=== PATIENT | male | born 1970 | race Caucasian/White ===

== ENCOUNTER 2020-01-14 08:56 | Emergency (ER) | payer OTHER, SELFPAY ==
--- NOTE | ~2020-01-14 | XR_ITS ---
EXAMINATION: XR foot RT 2V DATE: 01/14/2020 10:02 INDICATION: Lateral right foot pain TECHNIQUE: Dorsoplantar and lateral views of the right foot were obtained. COMPARISON: None. FINDINGS: Alignment is normal. No fracture. 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 Sydnee ining joint spaces are normal. Soft tissues are unremarkable. No right ankle joint effusion. IMPRESSION: 1. 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 No other osseous abnormality. Reviewed, dictated and finalized at location A. IMPRESSION: 1. 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 No other osse ous abnormality.
[2020-01-14 09:20] VITALS: BP 168/80; PULSE 81; RESP 16; TEMP 37.2; O2SAT 97
--- NOTE | 2020-01-14 09:31 | ED.EXTPRO ---
HPI - Extremity Problem General Chief complaint: Extremity Problem,Nontraumatic Stated complaint: right foot pain Time Seen by Provider: 01/14/20 09:33 Source: patient and RN notes reviewed Mode of arrival: ambulatory Limitations: no limitations History of Present Illness HPI Narrative: 49-year-old male presents with concern for right dorsal foot pain. He denies injury or trauma to the foot. Reports a similar pain 6 months ago that lasted for 1 month and then resolved. Reports he works on his feet, walks a lot. Reports mild pain at rest, pain worsening with weightbearing. Reports pain is improved when he puts a supportive shoe on. Denies bruising, redness, swelling. Reports the second digit of his right foot feels tingly. Denies weakness. MD Complaint: extremity pain Related Data Home Medications Medication Instructions Recorded Confirmed atenolol-chlorthalidone 1 tablet PO DAILY 11/15/19 01/14/20 lisinopril 40 mg PO DAILY 11/15/19 01/14/20 Allergies Allergy/AdvReac Type Severity Reaction Status Date / Time No Known Allergies Allergy Verified 01/14/20 09:23 Review of Systems Review of Systems: Narrative: CONSTITUTIONAL: Denies malaise, chills, sweats, or fever. CARDIOVASCULAR: Denies edema. RESPIRATORY: Denies dyspnea. SKIN: Denies bruising, redness MUSCULOSKELETAL: Reports right dorsal foot pain that radiates to the pedal aspect NEUROLOGIC: Denies weakness. Reports numbness in the second digit of the right foot All systems reviewed & are unremarkable except as noted in HPI and below PMFSH Past Medical History Medical History (Updated 01/14/20 @ 10:13 by Alexsandra Bradley NP) GERD (gastroesophageal reflux disease) History of posttraumatic stress disorder (PTSD) Hypercholesterolemia Hypertension Surgical History Surgical History (Updated 11/15/19 @ 09:42 by Glenis Chou NP) History of tonsillectomy and adenoidectomy Social History Social History (Updated 11/15/19 @ 09:42 by Glenis Chou NP) Smoking packs per day: 1 Smoking cigarettes per day: 20.0 Years smoked: 20 Smoking pack-years: 20.00 Smoking status: Current every day smoker Gender identity (if verbalized by the patient): Male Comments At time of signature, agree with nursing past medical, surgical, social and family history. There is no relevant family history pertinent to the presenting complaint Exam Narrative: Exam Narrative: GENERAL: Well-appearing, well-nourished, and in no acute distress. HEAD: Normocephalic, atraumatic. EYES: PERRLA, conjunctivae clear NECK: Supple. CHEST: Speaks in full sentences. No respiratory distress. HEART: Regular rate and rhythm. Normal and equal peripheral pulses. EXTREMITIES: Right foot and digits of right foot have normal strength and sensation, no edema, normal range of motion. 5/5 strength with digit and ankle flexion and extension. Normal sensation with sensitivity to light touch and pain. No open wounds, no skin tenting, no devitalized tissue or atrophy, no trophic changes, no ecchymosis, no obvious deformity, alignment normal, generalized dorsal, lateral tenderness, nearby joints and structures intact. Distal pulses palpable and equal bilaterally, skin warm, dry, pink. Capillary refill less than 3 seconds. SKIN: Warm, dry, no rash. NEURO: Alert and oriented x3. PSYCH: Normal mood and affect Course Course Emergency Course: Patient is aware of diagnosis, understands and agrees to treatment plan. Anticipatory guidance given. Patient agrees to follow-up as directed and is aware of reasons to seek care at the emergency department. Portions of this record may have been created with voice recognition software Vital Signs Vital signs: Vital Signs Temperature 98.9 F 01/14/20 09:20 Pulse Rate 81 01/14/20 09:20 Respiratory Rate 16 01/14/20 09:20 Blood Pressure 168/80 H 01/14/20 09:20 Pulse Oximetry 97 01/14/20 09:20 Temperature 98.9 F 01/14/20 09:20 Pulse
== END 2020-01-14 10:28 | disposition home or self-care (01) ==
PROVIDERS: Emergency Provider Nurse Practitioner
DX: M19.071 Primary osteoarthritis, right ankle and foot (principal); F17.210 Nicotine dependence, cigarettes, uncomplicated; K21.9 Gastro-esophageal reflux disease without esophagitis; E78.00 Pure hypercholesterolemia, unspecified; I10 Essential (primary) hypertension
CPT/HCPCS: 73620; 99213; G0463